=== PATIENT | male | born 1980 | race African-American/Black ===

== ENCOUNTER → 2016-07-28 | Outpatient (CLI) | payer MEDICAID | LOC: FIMAGING 17:00 | PROVIDERS: ATTEND Physician Assistant | DX: M79.604 Pain in right leg (principal); M79.605 Pain in left leg; R60.0 Localized edema ==

== ENCOUNTER 2017-04-09 16:42 | Emergency (ER) | payer MEDICAID ==
[2017-04-09 16:55] VITALS: BP 156/97; PULSE 86; RESP 16; TEMP 98.4; O2SAT 95
--- NOTE | 2017-04-09 17:26 | EDPHY ---
H & P Smoking Status: Current every day smoker Time Seen by Provider: 04/09/17 17:07 HPI/ROS: CHIEF COMPLAINT: Possible infection to nose HISTORY OF PRESENT ILLNESS: 36-year-old immunocompetent male complaining of possible infection to the nose for the past 2 days. Progressive erythema to the right nasal ala. New erythema to the left nare. No history of cutaneous MRSA or chronic skin infections. No facial lesions. No ocular complaints. No intraoral lesions. PHYSICAL EXAM (Prior to examination, patient consented to physical exam, hands were washed and my usual and customary physical exam procedures followed) 1) GENERAL: Well-developed, well-nourished, alert and oriented. Appears to be in no acute distress. 2) HEAD: Normocephalic 3) HEENT: sclera anicteric 4) LUNGS: Breathing comfortably. 5) SKIN: On the right nasal ala patient has erythema, tenderness. No vesicles. He has similar on the left nare. No intranasal lesions bilaterally. No intraoral lesions. No facial asymmetry. Nasolabial fold symmetrical. No facial lesions consistent with zoster DIFFERENTIAL DIAGNOSIS: In no particular order including but not limited to impetigo, cellulitis, zoster (Katlyn,Darrin Alesia) Constitutional: Initial Vital Signs Temperature (C) 36.9 C 04/09/17 16:53 Heart Rate 86 04/09/17 16:53 Respiratory Rate 16 04/09/17 16:53 Blood Pressure 156/97 H 04/09/17 16:53 O2 Sat (%) 95 04/09/17 16:53 O2 Delivery Mode Room Air Allergies/Adverse Reactions: No Known Allergies Allergy (Unverified 04/09/17 16:50) Home Medications: Medication Instructions Recorded Baclofen [Baclofen 10 mg (*)] 10 mg PO 04/09/17 Bp Med 04/09/17 Cephalexin [Keflex] 500 mg PO TID 10 Days cap 04/09/17 Divalproex ER [Depakote ER 250 MG 250 mg PO DAILY 04/09/17 (*)] Learned Carbonate [Learned 300 mg PO 04/09/17 Carbonate Cap 300 mg (*)] traZODone [traZODONE 100MG (*)] 100 mg PO 04/09/17 MDM/Departure - MDM ED Course/Re-evaluation: Recommend continue topical antibiotics. Because this is progressively enlarging I recommended a course of oral antibiotics. I do not think that hospitalization or imaging is indicated. He will be treated with monotherapy with Keflex at this time given no history of known MRSA or history of chronic skin infections. Doubt zoster. Usual and customary wound precautions instructions provided. He feels comfortable being discharged. Care of patient under supervision of secondary supervising physician Dr Paul . (Darrin Potts Alesia) The patient was evaluated and managed by the Physician Hospice Aide. My co- signature indicates that I have reviewed this chart and I agree with the findings and plan of care as documented. I am the secondary supervising physician. (Terese Paul) - Depart Disposition: Home, Routine, Self-Care Clinical Impression: Cellulitis of external nose Condition: Good Instructions: Cellulitis (ED) Additional Instructions: Return to the ER if you develop new or worsening redness, if you develop lesions on your face or any other symptoms that concern you. Stand Alone Forms: Work Excuse Prescriptions: Cephalexin [Keflex] 500 mg PO TID 10 Days cap Referrals: Claudia Guerrero, PAC [Primary Care Provider] - 2-3 days, call for appt.
== END 2017-04-09 17:54 | disposition home or self-care (01) ==
DX: J34.0 Abscess, furuncle and carbuncle of nose (principal); F17.200 Nicotine dependence, unspecified, uncomplicated

== ENCOUNTER 2017-04-14 11:24 | Emergency (ER) | payer MEDICAID ==
[2017-04-14 11:29] VITALS: BP 148/117; PULSE 105; RESP 20; TEMP 98.6; O2SAT 93
--- NOTE | 2017-04-14 11:44 | EDPHY ---
H & P Time Seen by Provider: 04/14/17 11:33 HPI/ROS: Chief complaint: Work release after cellulitis on nose History of present illness: This is a 36-year-old male who presents to the emergency department requesting a work release. He was seen here 5 days ago and diagnosed with a cellulitis on his nose. He is on day 5 of 10 of taking Keflex. He reports significant improvement, near resolution of symptoms. He is feeling well. There has been no development of new symptoms. No fevers, no involvement other parts of the faces. He would like a work note return to work. He works as a date night sitter on the phone. Smoking Status: Current every day smoker Physical Exam: General: Alert, nontoxic Skin: There is some crusting on the nose. No erythema. No edema. The rest the face is unremarkable. Neurological: Alert and oriented. Constitutional: Initial Vital Signs Temperature (C) 37 C 04/14/17 11:27 Heart Rate 105 H 04/14/17 11:27 Respiratory Rate 20 04/14/17 11:27 Blood Pressure 148/117 H 04/14/17 11:27 O2 Sat (%) 93 04/14/17 11:27 O2 Delivery Mode Room Air Allergies/Adverse Reactions: No Known Allergies Allergy (Verified 04/14/17 11:26) Home Medications: Medication Instructions Recorded Baclofen [Baclofen 10 mg (*)] 10 mg PO 04/09/17 Bp Med 04/09/17 Cephalexin [Keflex] 500 mg PO TID 10 Days cap 04/09/17 Divalproex ER [Depakote ER 250 MG 250 mg PO DAILY 04/09/17 (*)] [place] Carbonate [[place] 300 mg PO 04/09/17 Carbonate Cap 300 mg (*)] traZODone [traZODONE 100MG (*)] 100 mg PO 04/09/17 MDM/Departure - MDM ED Course/Re-evaluation: Patient seen under the supervision of my secondary supervising physician Dr. Misael Dawson. Patient presents to the emergency department requesting a work release note after being diagnosed with a nose cellulitis. His problem appears to have almost resolved. No new complaints. He is asked to finish the entire course of his antibiotics, 5 more days worth. He is cleared to go back to work. Return precautions are given. - Depart Disposition: Home, Routine, Self-Care Clinical Impression: Encounter for wound re-check Condition: Good Instructions: Acute Wounds (ED) Additional Instructions: Follow-up with a primary care doctor next week for recheck Finish all antibiotics Continue topical care with Neosporin and warm compresses If symptoms worsen or new symptoms develop return to the emergency room for recheck You may return to work Stand Alone Forms: Work Excuse Referrals: [facility],. [Clinic] - As per Instructions
== END 2017-04-14 11:52 | disposition home or self-care (01) ==
DX: Z48.00 Encounter for change or removal of nonsurgical wound dressing (principal); F17.200 Nicotine dependence, unspecified, uncomplicated

== ENCOUNTER 2018-01-30 09:53 | Emergency (ER) | payer MEDICAID ==
--- NOTE | 2018-01-30 10:57 | EDPHY ---
H & P Stated Complaint: cough, congestion Time Seen by Provider: 01/30/18 10:10 HPI/ROS: Chief complaint: Cold symptoms History of present illness: This is a 37-year-old male who presents to the emergency department for cold symptoms. He has been sick for the last week. He reports tactile fevers, runny nose, slight sore throat, chest congestion and cough. He denies alleviating factors. He denies other associated signs or symptoms including no headache or neck pain, no dyspnea, no rash. - Personal History Tetanus Vaccine Date: < 10 years - Medical/Surgical History Hx Asthma: No Hx Chronic Respiratory Disease: No Hx Diabetes: No Hx Cardiac Disease: No Hx Renal Disease: No Hx Cirrhosis: No Hx Alcoholism: No Hx HIV/AIDS: No Hx Splenectomy or Spleen Trauma: No Other PMH: HTN. eczema. bipolar. anxiety. PTSD. schizo - Social History Smoking Status: Current every day smoker - Physical Exam Exam: General Appearance: Alert and no distress. Eyes: Pupils equal and round no injection. ENT: Tympanic membranes, external auditory canals, external ears and surrounding soft tissue including over the mastoids are unremarkable. Nasopharynx is not injected. There is no rhinorrhea. Oropharynx is not injected. There is no edema. There is no exudate. There is no asymmetry. The uvula is midline. No elevation of the tongue. There is no hoarseness, no drooling, no trismus, no stridor. Respiratory: Chest is non tender, lungs are clear to auscultation. Cardiac: regular rate and rhythm Musculoskeletal: Neck is supple and non tender. Extremities have full range of motion and are non tender. Skin: No rashes or lesions. Neurological: Alert and oriented x4. No meningismus. Constitutional: Initial Vital Signs Temperature (C) 36.9 C 01/30/18 09:54 Heart Rate 70 01/30/18 09:54 Respiratory Rate 18 01/30/18 09:54 Blood Pressure 144/79 H 01/30/18 09:54 O2 Sat (%) 94 01/30/18 09:54 O2 Delivery Mode Room Air Allergies/Adverse Reactions: No Known Allergies Allergy (Verified 01/30/18 09:53) Home Medications: Medication Instructions Recorded Baclofen [Baclofen 10 mg (*)] 10 mg PO 04/09/17 Bp Med 04/09/17 Cephalexin [Keflex] 500 mg PO TID 10 Days cap 04/09/17 Divalproex ER [Depakote ER 250 MG 250 mg PO DAILY 04/09/17 (*)] [place] Carbonate [[place] 300 mg PO 04/09/17 Carbonate Cap 300 mg (*)] traZODone [traZODONE 100MG (*)] 100 mg PO 04/09/17 Albuterol Sulfate [Proair Hfa] 8.5 gm IH Q4-6PRN PRN #1 [email or web address] 01/30/18 Benzonatate [Tessalon Pearles (RX)] 100 - 200 mg PO Q8 #20 cap 01/30/18 Medical Decision Making - Diagnostics Imaging Results: Imaging Impressions Chest X-Ray 01/30/18 10:27 Impression: No acute cardiopulmonary process. Imaging: I viewed and interpreted images myself ED Course/Re-evaluation: Patient seen under the supervision of my secondary supervising physician Dr. Chava Madera. Patient presents for cold symptoms. He is nontoxic. Chest x- ray is negative. He is flu A positive but outside treatment range for antivirals. He will be discharged home. Home care is discussed. He is to follow up with the primary care doctor for recheck. Return precautions are given. The patient voiced understanding and agreement with plan. Differential Diagnosis: Included but not limited to URI, bronchitis, pneumonia, influenza or other viral syndrome - Data Points Laboratory Results: 01/30/18 10:05 Nasal Influenza A PCR FLU A DETECTED H (NEGATIVE) Nasal Influenza B PCR NEGATIVE FOR FLU B (NEGATIVE) Departure - Departure Disposition: Home, Routine, Self-Care Clinical Impression: Influenza A Condition: Good Instructions: Acute Bronchitis (ED) Additional Instructions: Follow-up with her primary care doctor this week for continued evaluation and care Drink plenty of fluids to stay hydrated Use an [id number] antihistamine such as Claritin Use ibuprofen 600 mg 3 times a day for the next 2-3 days for pain and fever If symptoms worsen or new symptoms develop return to the emergency department for recheck Referrals: Claudia Guerrero, PAC [Primary Care Provider] - As per Instructions Prescriptions: Albuterol Sulfate [Proair Hfa] 8.5 gm IH Q4-6PRN PRN #1 [email or web address] PRN Reason: Cough, Severe Benzonatate [Tessalon Pearles (RX)] 100 - 200 mg PO Q8 #20 cap
[2018-01-30 11:02] VITALS: BP 152/106
== END 2018-01-30 11:04 | disposition home or self-care (01) ==
DX: J09.X2 Influenza due to identified novel influenza A virus with other respiratory manifestations (principal); I10 Essential (primary) hypertension; F31.9 Bipolar disorder, unspecified; F43.10 Post-traumatic stress disorder, unspecified; F41.9 Anxiety disorder, unspecified; F20.9 Schizophrenia, unspecified; F17.200 Nicotine dependence, unspecified, uncomplicated